=== PATIENT | female | born 1960 ===

== ENCOUNTER 2017-07-12 02:13 | Emergency (ER) | payer SELFPAY ==
[2017-07-12 03:25] LABS: Basophils % (Auto) 0.4 % (0.0-1.8); Eosinophils % (Auto) 0.2 % (0.0-4.3); Hematocrit 40.8 % (30.3-42.9); Hemoglobin 12.9 gm/dl (10.1-14.3); Lymphocytes # (Auto) 2.1 K/mm3 (1.2-5.4); Lymphocytes % (Auto) 48.7 % (13.4-35.0); Mean Corpuscular HGB Conc 32 % (30-34); Mean Corpuscular Hemoglobin 29 pg (28-32); Mean Corpuscular Volume 93 fl (79-97); Monocytes # (Auto) 0.4 K/mm3 (0.0-0.8); Monocytes % (Auto) 9.2 % (0.0-7.3); Platelet Count 243 K/mm3 (140-440); Red Cell Distribution Width 14.5 % (13.2-15.2)
[2017-07-12 04:30] LABS: BUN/Creatinine Ratio 36; Blood Urea Nitrogen 25 mg/dL (7-17); Calcium 9.9 mg/dL (8.4-10.2); Hemolysis Index 9
[2017-07-12 21:44] LABS: Bacteria,Urine 1+ /HPF (Negative); Bilirubin,Urine NEG (Negative); Blood,Urine NEG (Negative); Color,Urine Yellow (Yellow); Mucus,Urine FEW /HPF; Nitrite,Urine NEG (Negative); Protein,Urine <15 mg/dL mg/dL (Negative)
--- NOTE | 2017-07-12 21:53 | Cat Scan Report ---
FINAL REPORT PROCEDURE: CT ABDOMEN PELVIS WO CON TECHNIQUE: Computerized axial tomography of the abdomen and pelvis was performed without intravenous contrast. HISTORY: abdominal pain COMPARISON: No prior studies are available for comparison. FINDINGS: Visualized lower thorax: Fibrotic densities. Cardiac enlargement. Liver: Normal size and attenuation. Spleen: Normal size and attenuation. Gallbladder and biliary system: Normal. Pancreas: Normal. Adrenals: Normal. Kidneys: Normal. No stones or hydronephrosis. GI tract: No dilated loops of bowel. Moderate stool. Appendix is normal. Lymph nodes and mesentery: Normal. Vasculature: Atherosclerotic calcifications. Bladder: Normal. Reproductive organs: Normal uterus. Peritoneum: No free fluid. Musculoskeletal structures: Degenerative change.. Other: None. IMPRESSION: No mass or obstruction. Moderate stool No stones or hydronephrosis.
--- NOTE | 2017-07-12 22:03 | Emergency Department Report ---
ED General Adult HPI - General Chief complaint: Chest Pain Stated complaint: CP Time Seen by Provider: 07/12/17 18:35 Source: EMS Mode of arrival: Stretcher Limitations: No Limitations - History of Present Illness Initial comments: Patient said about 3-4 days ago she was discharged from [facility]. She said when she was discharged she went to the airport however at the airport escorted her out as if she had nowhere to go she called the paramedics and brought her here to the hospital. She said she told them that she wanted to go back to [place] however they brought her here. Patient is complaining of neck pain and on both sides at the trapezius muscle moderate to severe intensity nonradiating with no aggravating or relieving factor. She denies any chest pain. She also complains of right lower quadrant pain of moderate intensity and nonradiating with no aggravating or relieving factor. [facility] the patient had an echocardiogram also had a cardiac catheterization. No stent was put in the patient. She did have a left atrial thrombus and was for which she was placed on Coumadin. She had a CT of the chest was done which was negative for dissection. Onset/Timin -: Gradual, days(s) Location: neck, abdomen Radiation: non-radiation Severity scale (0 -10): 0 Quality: aching Consistency: intermittent Improves with: none Worsens with: none Associated Symptoms: denies other symptoms Treatments Prior to Arrival: none - Related Data Previous Rx's Medication Instructions Recorded Last Taken Type Lactulose [Cephulac] 20 gm PO Q6HR PRN #300 ml 07/12/17 Unknown Rx Allergies Allergy/AdvReac Type Severity Reaction Status Date / Time No Known Allergies Allergy Unverified 07/12/17 02:35 ED Review of Systems ROS: Stated complaint: CP Other details as noted in HPI Comment: All other systems reviewed and negative ED Past Medical Hx - Past Medical History Previous Medical History?: Yes Hx Hypertension: Yes Hx Congestive Heart Failure: Yes Hx Asthma: Yes Additional medical history: heart murmur - Surgical History Past Surgical History?: Yes Additional Surgical History: Surgery on aorta - Social History Smoking Status: Never Smoker Substance Use Type: None - Medications Home Medications: Home Medications Medication Instructions Recorded Confirmed Last Taken Type Lactulose [Cephulac] 20 gm PO Q6HR PRN #300 ml 07/12/17 Unknown Rx ED Physical Exam - General Limitations: No Limitations General appearance: alert, in no apparent distress - Head Head exam: Present: atraumatic, normocephalic - Eye Eye exam: Present: normal appearance - ENT ENT exam: Present: mucous membranes moist - Neck Neck exam: Present: normal inspection, tenderness (tenderness to palpation of the trapezius muscle bilaterally) - Respiratory Respiratory exam: Present: normal lung sounds bilaterally. Absent: respiratory distress - Cardiovascular Cardiovascular Exam: Present: regular rate, normal rhythm. Absent: systolic murmur, diastolic murmur, rubs, gallop - GI/Abdominal GI/Abdominal exam: Present: soft, tenderness (diffuse tenderness no rebound tenderness), normal bowel sounds - Rectal Rectal exam: Present: deferred - Back Exam Back exam: Present: normal inspection - Neurological Exam Neurological exam: Present: alert, oriented X3 - Psychiatric Psychiatric exam: Present: normal affect, normal mood - Skin Skin exam: Present: warm, dry, intact, normal color. Absent: rash ED Course Vital Signs 07/12/17 07/12/17 07/12/17 02:16 02:30 19:30 Temperature 97.6 F 97.6 F 97.8 F Pulse Rate 92 H 93 H 79 Respiratory 18 17 16 Rate Blood Pressure 166/81 166/81 Blood Pressure 143/75 [Left] O2 Sat by Pulse 95 99 100 Oximetry ED Medical Decision Making - Lab Data Result diagrams: 07/12/17 02:40 07/12/17 02:40 - EKG Data -: EKG Interpreted by Me EKG shows normal: sinus rhythm (rate of 90), axis (normal), intervals (normal), QRS complexes (normal), ST-T waves (t wave inversion in V5 and V6 and also in V2.) Rate: normal - Radiology Data Radiology results: report reviewed (CT abdomen and pelvis shows moderate stool no masses or obstruction) Critical care attestation.: If time is entered above; I have spent that time in minutes in the direct care of this critically ill patient, excluding procedure time. ED Disposition Clinical Impression: Constipation, Neck muscle spasm Disposition: DC-01 TO HOME OR SELFCARE Is pt being admited?: No Does the pt Need Aspirin: No Condition: Stable Instructions: Constipation (ED) Prescriptions: Lactulose [Cephulac] 20 gm PO Q6HR PRN #300 ml PRN Reason: Constipation Referrals: PRIMARY CARE, [Primary Care Provider] - 3-5 Days Time of Disposition: 23:00 Print Language: GRENADIAN
[2017-07-12] MEDS ORDERED: CEPHULAC PO ONE (23:02)
[2017-07-12 23:49] VITALS: BP 124/71
== END 2017-07-12 23:40 | disposition home or self-care (01) ==
LOC: ED 02:13
DX: M62.838 Other muscle spasm (principal); R10.84 Generalized abdominal pain; K59.00 Constipation, unspecified; I11.0 Hypertensive heart disease with heart failure; I50.9 Heart failure, unspecified; J45.909 Unspecified asthma, uncomplicated; Z79.01 Long term (current) use of anticoagulants
CPT/HCPCS: 36415; 74176; 80048; 81001; 84484; 85025; 93005; 93010; 99285

== ENCOUNTER 2017-07-13 07:29 | Emergency (ER) | payer MEDICAID ==
--- NOTE | 2017-07-13 18:59 | Emergency Department Report ---
ED General Adult HPI - General Chief complaint: Medical Clearance Stated complaint: DOSENT LIKE HER DIAGNOSIS Time Seen by Provider: 07/13/17 16:37 Source: patient Mode of arrival: Ambulatory Limitations: No Limitations - History of Present Illness Initial comments: Patient is a 56-year-old homeless female who is presenting for the second time in 24 hours because she does not believe that she was properly diagnosed. Patient was here late yesterday and was seen by . Patient was brought in initially EMS because she had fallen asleep at the airport and had no vertigo and is sounded confused to the paramedics. Patient recently up patient at [facility] and had a cardiac cath done that was negative for coronary disease. Patient did have a left atrial thrombus and was been placed on Coumadin and Lovenox. Patient yesterday was complaining of some right lower quadrant discomfort and trapezius muscle pain. Patient's CT abdomen and pelvis showed that she had some residual colonic stool consistent with constipation and was discharged home with lactulose. - Related Data Previous Rx's Medication Instructions Recorded Last Taken Type Lactulose [Cephulac] 20 gm PO Q6HR PRN #300 ml 07/12/17 Unknown Rx Allergies Allergy/AdvReac Type Severity Reaction Status Date / Time No Known Allergies Allergy Unverified 07/12/17 02:35 ED Review of Systems ROS: Stated complaint: DOSENT LIKE HER DIAGNOSIS Other details as noted in HPI Comment: All other systems reviewed and negative ED Past Medical Hx - Past Medical History Previous Medical History?: Yes Hx Hypertension: Yes Hx Congestive Heart Failure: Yes Hx Asthma: Yes Additional medical history: heart murmur - Surgical History Past Surgical History?: Yes Additional Surgical History: Surgery on aorta - Social History Smoking Status: Current Every Day Smoker Substance Use Type: Marijuana - Medications Home Medications: Home Medications Medication Instructions Recorded Confirmed Last Taken Type Lactulose [Cephulac] 20 gm PO Q6HR PRN #300 ml 07/12/17 Unknown Rx ED Physical Exam - General Limitations: No Limitations General appearance: alert, in no apparent distress - Head Head exam: Present: atraumatic, normocephalic - Eye Eye exam: Present: normal appearance - ENT ENT exam: Present: mucous membranes moist - Neck Neck exam: Present: normal inspection - Respiratory Respiratory exam: Present: normal lung sounds bilaterally. Absent: respiratory distress - Cardiovascular Cardiovascular Exam: Present: regular rate, normal rhythm. Absent: systolic murmur, diastolic murmur, rubs, gallop - GI/Abdominal GI/Abdominal exam: Present: soft, normal bowel sounds - Extremities Exam Extremities exam: Present: normal inspection - Back Exam Back exam: Present: normal inspection - Neurological Exam Neurological exam: Present: alert, oriented X3 - Psychiatric Psychiatric exam: Present: normal affect, normal mood - Skin Skin exam: Present: warm, dry, intact, normal color. Absent: rash ED Course Vital Signs 07/13/17 09:06 Temperature 97.2 F L Pulse Rate 82 Respiratory 18 Rate Blood Pressure 162/74 O2 Sat by Pulse 99 Oximetry ED Medical Decision Making - Medical Decision Making Patient is homeless and does not have any place to go and I suspect that is why she has return patient states she she took health class in high school and was told that "there is stool in my stomach and I know what her stomach is in a can possibly be any stool in my stomach". I explained to the patient that she was in the right that there was no stool in her actual stomach organ however the majority of people do used the term stomach to me abdomen and this is what the physician yesterday had met. Patient did look over all of her medical records from yesterday which were printed out for her patient then stated "I don't believe anything that she was saying either". Patient seems to be very manipulative on yesterday's visit she was offered food as well as additional socks supplies because she is homeless and she told staff "I don't want any of that shit" social work was here today and stated that they can get her into a halfway tomorrow but she can be discharged and wait in our waiting room until that time. Critical care attestation.: If time is entered above; I have spent that time in minutes in the direct care of this critically ill patient, excluding procedure time. ED Disposition Clinical Impression: Malingering Disposition: DC-01 TO HOME OR SELFCARE Is pt being admited?: No Does the pt Need Aspirin: No Condition: Stable Referrals: PRIMARY CARE, [Primary Care Provider] - 3-5 Days
[2017-07-13 19:35] VITALS: BP 152/78
== END 2017-07-13 19:34 | disposition home or self-care (01) ==
LOC: ED 07:29
DX: Z76.5 Malingerer [conscious simulation] (principal); I11.0 Hypertensive heart disease with heart failure; I50.9 Heart failure, unspecified; F17.200 Nicotine dependence, unspecified, uncomplicated; F12.10 Cannabis abuse, uncomplicated
CPT/HCPCS: 99282

== ENCOUNTER 2017-07-14 08:42 | Emergency (ER) | payer MEDICAID | END 2017-07-14 09:00 | disposition left against medical advice (07) | LOC: ED 08:42 | DX: Z59.0 Homelessness (principal); Z53.21 Procedure and treatment not carried out due to patient leaving prior to being seen by health care provider ==